=== PATIENT | female | born 1995 | race Caucasian/White ===

== ENCOUNTER 2021-02-05 10:37 | Emergency (ER) | payer OTHER ==
[2021-02-05 10:51] VITALS: BP 121/66; PULSE 84; TEMP 98.1; BMI 38.9
[2021-02-05] MEDS ORDERED: IBUPROFEN 400 MG TABLET (FP) PO ONE ×2 (12:11→12:13)
== END 2021-02-05 12:28 | disposition home or self-care (01) ==
LOC: JERFT 10:37
DX: S80.01XA Contusion of right knee, initial encounter (principal); S16.1XXA Strain of muscle, fascia and tendon at neck level, initial encounter; V89.2XXA Person injured in unspecified motor-vehicle accident, traffic, initial encounter; Y92.9 Unspecified place or not applicable
CPT/HCPCS: 99283-25

== ENCOUNTER 2021-12-07 19:12 | Emergency (ER) | payer OTHER ==
[2021-12-07 19:36] VITALS: BP 115/81; PULSE 76; RESP 20; TEMP 98.4; BMI 37.9
[2021-12-07] MEDS ORDERED: IBUPROFEN 600 MG TABLET (FP) PO ONE ×2 (20:04→20:25)
[2021-12-07] MEDS ORDERED: METHOCARBAMOL 500 MG TABLET PO ONE (20:04)
[2021-12-07] MEDS ORDERED: METHOCARBAMOL 500 MG TABLET ONE (20:25)
== END 2021-12-07 20:47 | disposition home or self-care (01) ==
LOC: JER 19:12 → JERFT 19:12
DX: M54.2 Cervicalgia (principal); M25.561 Pain in right knee; V43.52XA Car driver injured in collision with other type car in traffic accident, initial encounter
CPT/HCPCS: 99283-25

== ENCOUNTER 2024-04-12 11:46 | Emergency (ER) | payer OTHER ==
[2024-04-12 12:03] VITALS: BP 112/75; PULSE 110; RESP 16; TEMP 98.6; BMI 36.8
[2024-04-12] MEDS ORDERED: FAMOTIDINE 20 MG/50 ML IVPB 20 MG/50 ML MG IVPB ONE (12:54)
[2024-04-12] MEDS ORDERED: ONDANSETRON 4 MG/2 ML VIAL ONE (12:54)
[2024-04-12] MEDS ORDERED: MAG HYDROX/AL HYDROX/SIMETH 30 ML UNIT-DOSE CUP ONE (12:54)
[2024-04-12] MEDS: ONDANSETRON 4 MG/2 ML VIAL IVPB ONE (13:17)
[2024-04-12] MEDS: ONDANSETRON 4 MG TABLET PO ONE (13:17)
[2024-04-12] MEDS: MAG HYDROX/AL HYDROX/SIMETH 30 ML UNIT-DOSE CUP PO ONE (13:18)
[2024-04-12] MEDS: FAMOTIDINE 20 MG/50 ML IVPB 20 MG/50 ML MG IVPB ONE (13:18)
[2024-04-12] MEDS: LACTATED RINGERS SOLUTION 1000 ML INFUS.BAG IV ONE (13:18)
[2024-04-12 13:34] LABS: BASO % 0.6 % (0-2.0); EOS % 1.9 % (0-4.5); HEMATOCRIT 35.9 % (32.4-45.2); HEMOGLOBIN 11.4 GM/dL (10.7-15.3); LYMPH % 29.9 % (8-40); MCH 24.2 pg (25.7-33.7); MCHC 31.9 g/dl (32.0-36.0); MEAN PLT VOLUME 9.6 fl (7.5-11.1); MONO % 11.6 % (3.8-10.2); PLATELET COUNT 234 10^3/uL (134-434); RBC 4.72 M/mm3 (3.60-5.2); RDW 17.9 % (11.6-15.6); WHITE BLOOD COUNT 5.4 K/mm3 (4.0-10.0)
[2024-04-12 14:00] LABS: POTASSIUM 4.7 mmol/L (3.5-5.1)
[2024-04-12 14:02] LABS: CALCIUM 8.9 mg/dL (8.5-10.1)
[2024-04-12 14:03] LABS: ALBUMIN 3.5 g/dl (3.4-5.0); BLOOD UREA NITROGEN 13.2 mg/dL (7-18); MAGNESIUM 2.1 mg/dL (1.8-2.4)
[2024-04-12 14:07] LABS: BILIRUBIN,TOTAL 0.4 mg/dL (0.2-1)
[2024-04-12 14:08] LABS: TOT PROT 7.6 g/dl (6.4-8.2)
[2024-04-12 20:04] LABS: HIV INTERPRETATION NEGATIVE (NEGATIVE)
== END 2024-04-12 15:14 | disposition home or self-care (01) ==
LOC: JER 11:46
PROC: 3E033GC Introduction of Other Therapeutic Substance into Peripheral Vein, Percutaneous Approach (ICD-10-PCS; principal; 2024-04-12)
PROC: 3E033GC Introduction of Other Therapeutic Substance into Peripheral Vein, Percutaneous Approach (ICD-10-PCS; 2024-04-12)
PROC: 3E0337Z Introduction of Electrolytic and Water Balance Substance into Peripheral Vein, Percutaneous Approach (ICD-10-PCS; 2024-04-12)
DX: R10.13 Epigastric pain (principal); R19.7 Diarrhea, unspecified; R11.2 Nausea with vomiting, unspecified
CPT/HCPCS: 36415; 80053; 83605; 83690; 83735; 84703; 85025; 86803; 87389; 93005; 93010; 99284-25